=== PATIENT | female | born 1980 | race Caucasian/White ===

== ENCOUNTER 2024-08-21 10:03 | Emergency (ER) | payer MEDICAID, SELFPAY ==
[2024-08-21 10:04] VITALS: BP 162/85; PULSE 94; RESP 16; TEMP 36.7; O2SAT 98; BMI 42.9
--- NOTE | 2024-08-21 10:12 | EX.ED.DYSGE1 ---
HPI History of Present Illness Chief Complaint: Edema [facility] Medical History (Updated 08/21/24 @ 11:42 by Bayron Reed) Migraines Depression HTN (hypertension) Fibromyalgia Home Medications ?Medication ?Instructions ?Recorded ?Last Taken ?Type albuterol 90 mcg/actuation aerosol mcg inhalation 08/21/24 Unknown History inhaler amlodipine 5 mg tablet 5 mg PO DAILY 08/21/24 Unknown History aripiprazole 2 mg tablet (Abilify) 2 mg PO TID 08/21/24 Unknown History atogepant 60 mg tablet (Qulipta) 60 mg PO DAILY 08/21/24 Unknown History biotin 2,500 mcg capsule 2,500 mcg PO DAILY 08/21/24 Unknown History dextromethorphan buproprion 08/21/24 Unknown History hydroxyzine HCl 50 mg tablet 100 mg PO TID 08/21/24 Unknown History loratadine 10 mg tablet 10 mg PO DAILY 08/21/24 Unknown History (Allerclear) magnesium glycinate 100 mg (as 100 mg PO DAILY 08/21/24 Unknown History glycinate) tablet (Mag Glycinate) metoprolol succinate 25 mg 25 mg PO DAILY 08/21/24 Unknown History tablet,extended release 24 hr quetiapine 25 mg tablet (Seroquel) 25 mg PO QHS 08/21/24 Unknown History sumatriptan succinate 100 mg See Rx Instructions PO .COMPLEX 08/21/24 Unknown History tablet (Imitrex) tranexamic acid 650 mg tablet 1,300 mg PO TID 08/21/24 Unknown History Allergy/AdvReac Type Severity Reaction Status Date / Time No Known Allergies Allergy Verified 08/21/24 10:06 Surgical History (Updated 08/21/24 @ 11:32 by Bayron Reed) Status post laser lithotripsy of ureteral calculus Hx laparoscopic cholecystectomy H/O wrist surgery Previous back surgery Social History Smoking Status: Former smoker EXAM Physical Exam Const Vital Signs: 08/21/24 10:04 08/21/24 10:49 08/21/24 11:44 Temperature 98.1 F 98.4 F Temperature Source Oral Oral Pulse Rate 94 85 Respiratory Rate 16 19 H Respiratory Effort Normal Respiratory Pattern Normal Blood Pressure 162/85 H 140/70 H Blood Pressure Mean 110 93 Pulse Ox 98 97 Oxygen Delivery Method Room Air Room Air MDM MDM MDM Narrative Medical decision making narrative: HISTORY OF PRESENT ILLNESS: Chief complaint: Swelling/rash 44-year-old female presents with edema. She states for couple days she has had swelling in. She also notes rash. She states she does not have chest pain or shortness of breath currently but in the past has occasionally had chest pain and felt slightly short of breath that she endorses could be result of asthma. She states she went to an urgent care several days ago and noted that the urgent care provider told her there is nothing they could do but if swelling got worse to come to the ED. She notes the swelling is not worse today but overnight she developed a rash on bilateral lower extremities. It is not itchy but she notes is painful. Denies fever. Denies headache or neck stiffness. Denies bleeding diathesis. No she is urinating normally. REVIEW OF SYSTEMS: Pertinent positives: Leg swelling, rash Pertinent negatives: Chest pain, shortness of breath, vomiting, bleeding diathesis PHYSICAL EXAM: Nursing triage notes reviewed, Vital signs reviewed Constitutional: please see mdm HENT: MMM Eyes: Pupils equal round and reactive to light, Extraocular muscles intact Neck: No stridor, no JVD, full neck ROM Lungs: Clear to auscultation, No wheezing or rales. No increased work of breathing, no conversational dyspnea, no accessory muscle use, no nasal flaring. No respiratory distress noted Heart: Regular rate and rhythm, No murmurs, No rubs and No gallops, 2+ distal pulses (radial, femoral, posterior tibial) in all extremities Abdomen: Soft, there is no tenderness, rigidity, rebound or guarding, no obvious peritoneal signs, no palpable pulsatile abdominal masses, no auscultated abdominal bruit : No CVAT Extremities: No edema Neuro: No new focal neurological deficits, cranial nerves II through XII intact, 5/5 strength in all present extremities. Intact sensation to light touch in all present extremities, 2+ reflexes bilateral patella tendons. Skin: Nonspecific erythematous maculopapular rash noted to the medial surface of the mid tibia bilaterally covering approximately 8 x 8 cm. There is no warmth. There is no fluctuance. There is no induration. No palpable abscesses. No crepitus or bullae. Pain is on forced exam. There is no vesicular lesions. MEDICAL DECISION MAKING: Chief Complaint: please see HPI External records reviewed: Prior chart reviewed. No recent echocardiograms or ED visits noted. Factors affecting care: none reported in the chart. Per patient hypertension, hepatitis C, asthma Social determinants of health: none History obtained from others: none Consults: none MDM Narrative: The patient was initially hemodynamically stable, afebrile and nontoxic-appearing. Exam without obvious pitting edema. No calf tenderness. No stigmata of CHF, liver failure. Patient was not altered. She is having normal bowel and bladder habits. I considered the following differential diagnosis: Lower extremity swelling, CHF, renal failure, liver failure, shingles, cellulitis, venous stasis changes, necrotizing fasciitis I obtained a broad lab and imaging to further determine if the patient was suffering from a life-threatening etiology. ALL IMAGES (IF OBTAINED) HAVE BEEN PERSONALLY REVIEWED AND INTERPRETED BY MYSELF. I have personally reviewed the patient's chest x-ray. Chest x-ray is unremarkable for pulmonary edema, pneumothorax, pneumonia or focal cardiopulmonary abnormality. EKG was interpreted as normal sinus rhythm rate 81, normal axis, normal intervals, no STEMI BNP within normal limits suggesting no volume overload, increased ventricular stretch or transmural pressure. No sign of heart failure. CMP without significant electrolyte abnormalities, there is a low bicarb (sign metabolic acidosis however this is marginal at 20.5 with a lab reference range of 21-32) no anion gap to suggest endorgan hypoperfusion. No significant liver dysfunction or sign of hepatobiliary obstruction. There is very mild elevation liver enzymes which are not clinically significant. Urine test negative High-sensitivity troponin is negative, no evidence of myocardial ischemia The synthesis of the patient's history, physical exam, labs, imaging suggest no acute life-threatening abnormality. The cause the patient's rash is uncertain but does not appear to be related to severe infection, thrombocytopenia meningitis etc. In terms of organ abnormalities that present with lower extreme edema there is no sign of heart failure, ACS, renal or hepatic abnormalities. No indication for admission at this time although this was considered. Patient is appropriate for outpatient follow-up. Strict return precautions were discussed The patient and/or family, caregivers express understanding. The patient and/or family, caregivers agrees with the plan. Shared decision making: I will have a discussion with the patient and or visitors regarding risk/benefits of further testing or admission. They will be made aware of of the risk/benefits inherent in this decision they will be given the opportunity to voice understanding. Total critical care time today provided was at least 0 minutes. This excludes separately billable procedures. Critical care time (if documented) is secondary to the patient having high probability of clinically significant/life threatening deterioration in the patient's condition which required my urgent intervention. Impression: 1. Lower extremity edema 2. Dermatitis not otherwise specified Dispo: Discharge This note was generated with [employer] dictation software. It may contain incorrect words, spelling, and punctuation that were not noted in review of the chart prior to signing. Lab Data Labs: Laboratory Results - last 24 hr 08/21/24 08/21/24 08/21/24 10:30 10:55 11:35 WBC Cancelled 9.1 Corrected WBC Cancelled RBC Cancelled 4.80 Hgb Cancelled 13.3 Hct Cancelled 39.7 MCV Cancelled 82.7 MCH Cancelled 27.7 MCHC Cancelled 33.5 RDW Std Deviation Cancelled 39.7 RDW Coeff of Sahil Cancelled 13.2 Plt Count Cancelled 247 MPV Cancelled 9.0 Diff Path Review Cancelled Sodium 139 Potassium 4.5 Chloride 105 Carbon Dioxide 20.5 L Anion Gap 13 BUN 11 Creatinine 0.86 Estim Creat Clear Calc 111.89 Est GFR (MDRD) Non-Af 84 BUN/Creatinine Ratio 13.1 Glucose 100 H Calcium 9.4 Total Bilirubin 0.45 AST 38 H ALT 46 H Alkaline Phosphatase 63 Troponin T High Sens < 6 NT pro BNP II 52 Total Protein 6.7 Albumin 4.5 Globulin 2.2 Albumin/Globulin Ratio 2.0 Urine Test Negative Radiography Diagnostic Testing: Clinical Impression(s) from Imaging Studies Chest X-Ray 08/21/24 11:00 IMPRESSION: Negative Chest. Reading Location: [id number] Discharge Plan Triage Chief Complaint: Edema Other Complaint: Rash ED Provider: Mohamud Agrawal Dx/Rx/DC Orders Instructions: ED Peripheral Edema, Bilateral, ED Erythema Prescriptions: No Action biotin 2,500 mcg capsule 2,500 mcg PO DAILY aripiprazole [Abilify] 2 mg tablet 2 mg PO TID dextromethorphan buproprion hydroxyzine HCl 50 mg tablet 100 mg PO TID quetiapine [Seroquel] 25 mg tablet 25 mg PO QHS loratadine [Allerclear] 10 mg tablet 10 mg PO DAILY metoprolol succinate 25 mg tablet extended release 24 hr 25 mg PO DAILY amlodipine 5 mg tablet 5 mg PO DAILY albuterol 90 mcg/actuation aerosol inhalation Qulipta 60 mg tablet 60 mg PO DAILY sumatriptan succinate [Imitrex] 100 mg tablet See Rx Instructions .ROUTE .COMPLEX Rx Instructions: take 1 tab at onset of headache; if no relief, may repeat 1 tab after at least 2 hrs; max = 2 tabs/24 hrs Mag Glycinate 100 mg tablet 100 mg PO DAILY tranexamic acid 650 mg tablet 1,300 mg PO TID Primary Care Provider: GEETA CARBAJAL Referrals: Jerica Felipe MD [Non-Staff] - Carlos Guillermo DO [Non-Staff] - Activity Restrictions/Additional Instructions: Thank you for trusting us with your care today! Your labs and images are reassuring. Specifically no sign of heart damage, heart failure, kidney or liver failure. The cause of your rash is uncertain. This will require outpatient follow-up. Please take Tylenol (2 pills, 650 mg), ibuprofen (2 pills, 400 mg) every 6 hours as needed for pain and fever control. Please return to the emergency department if your symptoms change or worsen. Please follow with your primary care physician for further outpatient evaluation and management. Print Language: Nam[place]ian Disposition Disposition: Home, Self Care
--- NOTE | 2024-08-21 10:27 | EKG12_ITS ---
Test Reason : LEG SWELLING Blood Pressure : */* mmHG Vent. Rate : 81 BPM Atrial Rate : 81 BPM P-R Int : 154 ms QRS Dur : 76 ms QT Int : 388 ms P-R-T Axes : 48 28 41 degrees QTcB Int : 450 ms Normal sinus rhythm Low voltage QRS Borderline ECG Confirmed by Jose Alejandro Moss ([id number]), news editor YORDAN HORNER ([id number]) on 08/22/2024 1:09:59 PM Referred By: Confirmed By: Jose Alejandro Moss
--- NOTE | 2024-08-21 11:00 | RAD_ITS ---
PROCEDURE: CHEST 1 VIEW (PORTABLE) 08/21/2024 REASON FOR EXAM: SWELLING TECHNIQUE: Frontal view of the chest. COMPARISON: None. FINDINGS: Hardware: None. Heart: The heart size is normal. Lungs: No focal consolidation, pleural effusion or pneumothorax. Bones: The bones are unremarkable. RAD/Chest 1 View (Portable) IMPRESSION: Negative Chest. Reading Location: [id number]
[2024-08-21 11:25] LABS: Internal QC Validated? YES +Cl - CLEAR BKGD; Pregnancy, Urine Negative Negative
[2024-08-21 11:26] LABS: Record Kit Lot#,Urine Preg 947241
[2024-08-21 11:27] LABS: AST(SGOT) 38 U/L (<=31); Alanine Aminotransfer ALT/SGPT 46 U/L (<=34); Albumin, Serum 4.5 g/dL (3.5-5.0); Alkaline Phosphatase 63 U/L (35-104); Anion Gap 13 (5-15); BUN 11 mg/dL (4-19); BUN/Creat Ratio 13.1 RATIO (10-20); Calcium,Total 9.4 mg/dL (7.6-11.0); Carbon Dioxide 20.5 mmol/L (21.0-32.0); Chloride 105 mmol/L (98-108); Estimated Creatinine Clearance 111.89 ml/min (50-250); Globulin 2.2 g/dL (2.2-4.2); Glucose 100 mg/dL (70-99); Potassium 4.5 mmol/L (3.3-5.1); Pro- Brain NATRIURETIC PEPTIDE 52 pg/mL (<=450)
[2024-08-21 11:40] LABS: Hematocrit 39.7 % (37-47); Hemoglobin 13.3 g/dL (12.0-15.0); Mean Corp Hgb Conc 33.5 g/dL (32-36); Mean Corpuscular Volume 82.7 fL (81-99); Mean Platelet Vol. 9.0 fl (6.2-12.0); Platelet Count 247 K/mm3 (150-450); RBC Distribution Width CV 13.2 % (11.6-14.6); RBC Distribution Width SD 39.7 fl (35.1-43.9); Red Blood Count 4.80 M/mm3 (4.2-5.4); White Blood Count 9.1 K/mm3 (4.4-11.0)
[2024-08-21 11:42] LABS: Troponin T High Sensitivity < 6 ng/L (<=14)
[2024-08-21 11:44] VITALS: BP 140/70; PULSE 85; RESP 19; TEMP 36.9; O2SAT 97
[2024-08-21 12:56] VITALS: BP 137/73; PULSE 76; RESP 18; TEMP 36.6; O2SAT 98
== END 2024-08-21 12:57 | disposition home or self-care (01) ==
PROVIDERS: Emergency Provider Emergency Medicine; Visit Provider Emergency Medicine
DX: R60.0 Localized edema (principal); L30.9 Dermatitis, unspecified; Z87.891 Personal history of nicotine dependence; Z90.49 Acquired absence of other specified parts of digestive tract; I10 Essential (primary) hypertension; F32.A Depression, unspecified; M79.7 Fibromyalgia
CPT/HCPCS: 71045; 80053; 81025; 83880; 84484; 85027; 93005; 99285; A4216